=== PATIENT | male | born 2000 | race Caucasian/White ===

== ENCOUNTER 2023-11-30 12:45 | Emergency (ER) | payer OTHER ==
[~2023-11-30] VITALS: Ht 180.3 cm; Wt 120.2 kg
[2023-11-30 13:30] VITALS: BP 144/86; TEMP 98.3; O2SAT 100
== END 2023-11-30 13:30 | disposition home or self-care (01) ==
LOC: ER 13:03
DX: F41.9 Anxiety disorder, unspecified (principal); R07.89 Other chest pain
CPT/HCPCS: 71045-TC